=== PATIENT | female | born 1965 | race Caucasian/White ===

== ENCOUNTER → 2016-06-15 | Outpatient (CLI) | payer OTHER ==
--- NOTE | 2016-06-15 19:45 | DX ---
Left Wrist Series, 4 Views Indication: Trauma. Slipped on ice. Comparison: None. Findings: An acute intra-articular distal radius fracture is minimally impacted and has minimal (10 to 15 degrees) apex volar angulation. There is 1 to 2 mm articular step-off is demonstrated on the AP view. The distal ulna and navicular bones are intact. No widening of the scapholunate interval. Impression: 1. Acute minimally impacted and angulated intra-articular distal radius fracture. 2. No navicular fracture. Comment: The findings were discussed with the patient via the phone at 6:00 PM on June 062016. I attempted to contact Dr. Kaur at [facility], however, the line was busy (2 separate phone calls). Patient plans to follow up with Dr. Kaur on Saturday.
== END ==
LOC: FIMAGING 12:11
DX: S52.572A Other intraarticular fracture of lower end of left radius, initial encounter for closed fracture (principal)

== ENCOUNTER → 2018-05-10 | Outpatient (CLI) | payer OTHER | LOC: FIMAGING 08:34 | PROVIDERS: ATTEND Family Medicine | DX: Z12.31 Encounter for screening mammogram for malignant neoplasm of breast (principal) ==